=== PATIENT | female | born 1955 | race Caucasian/White ===

== ENCOUNTER 2019-12-10 16:02 | Emergency (ER) | payer MEDICARE, OTHER ==
[2019-12-10] MEDS ORDERED: Bupivacaine 0.5% 10 ML SDV ONE (16:18)
[2019-12-10] MEDS ORDERED: Diphtheria,Pertussis(Acell),Tetanus Vaccine 0.5 ML SDV IM ONE (16:27)
[2019-12-10] MEDS ORDERED: Sodium Chloride 0.9% 10 ML Syringe FLUSH PRN (16:55)
[2019-12-10] MEDS ORDERED: ceFAZolin 1 GM in Sodium Chloride 0.9% 50 ML IV ONE (16:57)
--- NOTE | 2019-12-10 16:58 | EDM.PDOC ---
ED HPI GENERAL MEDICAL PROBLEM - General Chief Complaint: Laceration Stated Complaint: RIGHT FIRST FINGER SLAMMED IN DOOR Time Seen by Provider: 12/10/19 16:20 Source of Information: Reports: Patient History Limitations: Reports: No Limitations - History of Present Illness INITIAL COMMENTS - FREE TEXT/NARRATIVE: pt was cleaning at [employer] and a heavy metal door slammed on her left 4th finger. The tip of the finger was brokenoff to the level of the base of the nail. On the otto aspect the injury did go down to the level of the first joint. Onset: Today, Sudden Duration: Hour(s): Location: Reports: Upper Extremity, Left Associated Symptoms: Reports: No Other Symptoms - Related Data Allergies Allergy/AdvReac Type Severity Reaction Status Date / Time Penicillins Allergy Rash Verified 12/10/19 16:46 Sulfa (Sulfonamide Allergy Rash Verified 12/10/19 16:46 Antibiotics) Home Meds: Home Meds Levothyroxine [Synthroid] 1 tab PO DAILY 12/10/19 [History] ED ROS GENERAL - Review of Systems Review Of Systems: See Below Constitutional: Reports: No Symptoms HEENT: Reports: No Symptoms Respiratory: Reports: No Symptoms Cardiovascular: Reports: No Symptoms Endocrine: Reports: No Symptoms GI/Abdominal: Reports: No Symptoms : Reports: No Symptoms Musculoskeletal: Reports: No Symptoms, Other ( amputation of the tip of the 4th left finger. ) Skin: Reports: No Symptoms ED EXAM, SKIN/RASH Exam: See Below Text/Narrative:: pt was cleaning at the [employer] and she got her lwft 4th finger caught in a heavy metal door. The tip was amputated. Exam Limited By: No Limitations General Appearance: Alert, Moderate Distress Ears: Normal TMs Nose: Normal Inspection Throat/Mouth: Normal Inspection Head: Atraumatic Neck: Normal Inspection Respiratory/Chest: No Respiratory Distress Cardiovascular: Regular Rate, Rhythm GI/Abdominal: Soft, Non-Tender (Female) Exam: Deferred Rectal (Female) Exam: Deferred Back Exam: Normal Inspection Extremities: Normal Inspection, Other ( the 4th finger on the left was caught in a heavy metal door. She took it down to the bas of the nail dorsally and the otto dammage extended to the most distal joint. Pt is very upset at this time. A digital block was placed with buforcaine) Neurological: Alert, Oriented, Other (pt is some what limited with her abilities. ) Psychiatric: Anxious Location, Skin: Upper Extremity, Left Course - Vital Signs Last Recorded V/S: Last Vital Signs Temp 35.7 C L 12/10/19 16:53 Pulse 70 12/10/19 16:53 Resp 16 12/10/19 16:53 BP 149/63 H 12/10/19 16:53 Pulse Ox 97 12/10/19 16:53 - Orders/Labs/Meds Meds: Medications Discontinued Medications Generic Name Dose Route Start Last Admin Trade Name Freq PRN Reason Stop Dose Admin Hydrocodone Bitart/Acetaminophen 1 tab 12/10/19 17:02 12/10/19 17:49 Morrison 325-5 Mg PO 12/10/19 17:03 Not Given ONETIME ONE Bupivacaine HCl Confirm 12/10/19 16:18 Sensorcaine-Mpf 0.5% Administered 12/10/19 16:19 Dose 10 ml .ROUTE .STK-MED ONE Bupivacaine HCl 10 ml 12/10/19 16:59 12/10/19 17:50 Sensorcaine-Mpf 0.5% INJECT 12/10/19 17:00 10 ml ONETIME ONE Administration Diphtheria/Tetanus/Acell Pertussis 0.5 ml 12/10/19 16:27 12/10/19 16:57 Adacel IM 12/10/19 16:28 0.5 ml .ONCE ONE Administration Cefazolin Sodium 1 gm/ Sodium 50 mls @ 100 mls/hr 12/10/19 16:57 12/10/19 17: 50 Chloride IV 12/10/19 17:26 100 mls/hr ONETIME ONE Administration Sodium Chloride 10 ml 12/10/19 16:55 12/10/19 17:50 Saline Flush FLUSH 10 ml ASDIRECTED PRN Administration Keep Vein Open - Re-Assessments/Exams Free Text/Narrative Re-Assessment/Exam: 12/10/19 17:05 xray shows the bone intact but exposed. Ortho DL was contacted-- Tashia Townsend. The pt is to be at [facility] tomorrow at 8 thirty. She will need to be NPO. after midnigght. 12/10/19 17:15 Departure - Departure Time of Disposition: 17:55 Disposition: Home, Self-Care 01 Condition: Fair Clinical Impression: Amputation finger - Discharge Information Instructions: Traumatic Finger Amputation Referrals: Doug Zaman MD [Primary Care Provider] - Forms: ED Department Discharge Care Plan Goals: leave dressing in place, elevate the hand, norco 5/325 q6h prn for pain, be in [facility] at 8 thjirty tomorrow, Pt needs not to eat or drink after midnight keflex 500mg tid, Sepsis Event Note - Focused Exam Date Exam was Performed: 12/12/19 Time Exam was Performed: 07:07
[2019-12-10] MEDS ORDERED: Bupivacaine 0.5% 10 ML SDV INJECT ONE (16:59)
[2019-12-10] MEDS ORDERED: Acetaminophen/HYDROcodone 325-5 MG Tab PO ONE (17:02)
--- NOTE | 2019-12-11 12:08 | CR ---
Fingers [employer] Dig[employer] Lt F3 CLINICAL HISTORY: Amputation FINDINGS: There is moderate soft tissue deformity of the tip of the index finger. There is a nondisplaced fracture through the base of the distal phalanx and possible minimal nondisplaced fracture of the tuft. There is some osteoarthritis. IMPRESSION: Soft tissue amputation of the tip of the index finger Fracture of the distal phalanx Osteoarthritis
== END 2019-12-10 17:58 | disposition home or self-care (01) ==
LOC: JP.ED 16:02
DX: S68.615A Complete traumatic transphalangeal amputation of left ring finger, initial encounter (principal); Z88.0 Allergy status to penicillin; Z88.2 Allergy status to sulfonamides; Z23 Encounter for immunization; W23.0XXA Caught, crushed, jammed, or pinched between moving objects, initial encounter
CPT/HCPCS: 64450; 73140; 90471; 90715; 96365; 99283; J0690; J3490; J7050

== ENCOUNTER 2023-01-08 07:20 | Day surgery (SDC) | payer MEDICARE ==
[2023-01-08] MEDS ORDERED: Propofol 200 MG/20 ML SDV ONE ×3 (07:51→09:09)
[2023-01-08] MEDS ORDERED: Midazolam 1 MG/ML 2 ML SDV ONE (07:51)
[2023-01-08] MEDS ORDERED: fentaNYL 50 MCG/ML SDV ONE (07:51)
[2023-01-08] MEDS ORDERED: Lactated Ringers 1,000 ML IV SCH (09:00)
== END 2023-01-08 11:44 | disposition home or self-care (01) ==
LOC: JP.SDS 07:20
PROVIDERS: ATTEND Student in an Organized Health Care Education/Training Program
DX: Z12.11 Encounter for screening for malignant neoplasm of colon (principal); D12.0 Benign neoplasm of cecum; D12.2 Benign neoplasm of ascending colon; D12.3 Benign neoplasm of transverse colon; D12.4 Benign neoplasm of descending colon; K62.1 Rectal polyp; K57.30 Diverticulosis of large intestine without perforation or abscess without bleeding; Z86.010 Personal history of colon polyps; Z88.1 Allergy status to other antibiotic agents; Z88.2 Allergy status to sulfonamides
CPT/HCPCS: 45385; 88305; J2250; J2704; J3010; J7120

== ENCOUNTER 2023-08-20 06:49 | Day surgery (SDC) | payer MEDICARE ==
[2023-08-20] MEDS ORDERED: Lactated Ringers 1,000 ML IV SCH (07:45)
[2023-08-20] MEDS ORDERED: Propofol 200 MG/20 ML SDV ONE ×3 (09:55→11:02)
== END 2023-08-20 11:35 | disposition home or self-care (01) ==
LOC: JP.SDS 06:49
PROVIDERS: ATTEND Student in an Organized Health Care Education/Training Program
DX: Z12.11 Encounter for screening for malignant neoplasm of colon (principal); K63.5 Polyp of colon; K51.40 Inflammatory polyps of colon without complications; K57.30 Diverticulosis of large intestine without perforation or abscess without bleeding; E11.9 Type 2 diabetes mellitus without complications; E03.9 Hypothyroidism, unspecified; Z88.0 Allergy status to penicillin; Z88.2 Allergy status to sulfonamides; Z88.1 Allergy status to other antibiotic agents
CPT/HCPCS: 45380; 88305; J2704; J7120